=== PATIENT | female | born 1950 | race Caucasian/White ===

== ENCOUNTER 2025-05-15 05:22 | Observation (INO) ==
--- NOTE | 2025-04-29 09:16 | PAT Medication Instructions ---
Medication Instructions Date of Service April 29, 2025 Home Medications amlodipine 2.5 mg tablet 2.5 mg PO QAM atorvastatin 20 mg tablet 20 mg PO QAM baclofen 10 mg tablet 10 mg PO UD PRN losartan 50 mg tablet 50 mg PO BID acetaminophen 650 mg tablet,extended release 650 mg PO Q12 PRN albuterol sulfate 90 mcg/actuation aerosol inhaler 2 puff inhalation QID PRN aspirin 325 mg tablet 325 mg PO DAILY PRN diclofenac sodium 1 % topical gel 2 g topical QID PRN furosemide 20 mg tablet 20 mg PO QAM glucosamine-chondroitin 250 mg-200 mg tablet 1 tab PO QAM [id number]-lgh-WI 200 mcg-vit K 15 mcg-lycope 150 ejj-cvuewp-tktm tablet (Ocuvite Eye Plus Multi) 1 tab PO QAM omega-3 fatty acids 1,000 mg PO QAM spironolactone 25 mg tablet 12.5 mg PO 3XWK turmeric 400 mg capsule 400 mg PO QAM Continue as directed baclofen 10 mg tablet 10 mg PO UD PRN(if needed) ASK your prescriber and surgeon aspirin 325 mg tablet 325 mg PO DAILY PRN STOP taking 2 weeks before surgery (or as soon as possible if surgery is within 2 weeks) glucosamine-chondroitin 250 mg-200 mg tablet 1 tab PO QAM [id number]-qjx-LK 200 mcg-vit K 15 mcg-lycope 150 eqh-zrkmov-ucvz tablet (Ocuvite Eye Plus Multi) 1 tab PO QAM omega-3 fatty acids 1,000 mg PO QAM turmeric 400 mg capsule 400 mg PO QAM STOP taking 24 hours before surgery diclofenac sodium 1 % topical gel 2 g topical QID PRN DO NOT take the morning of surgery losartan 50 mg tablet 50 mg PO BID furosemide 20 mg tablet 20 mg PO QAM spironolactone 25 mg tablet 12.5 mg PO 3XWK Take morning of surgery With a small sip of water, OTHERWISE NOTHING TO EAT OR DRINK AFTER MIDNIGHT: amlodipine 2.5 mg tablet 2.5 mg PO QAM atorvastatin 20 mg tablet 20 mg PO QAM acetaminophen 650 mg tablet,extended release 650 mg PO Q12 PRN(if needed) albuterol sulfate 90 mcg/actuation aerosol inhaler 2 puff inhalation QID PRN(use if needed; please bring with you to hospital day of surgery if possible) Take evening before surgery losartan 50 mg tablet 50 mg PO BID acetaminophen 650 mg tablet,extended release 650 mg PO Q12 PRN(if needed) albuterol sulfate 90 mcg/actuation aerosol inhaler 2 puff inhalation QID PRN(if needed) Other Notes If you have any questions please call us at [phone] or [phone] or [phone] or [phone]
--- NOTE | 2025-05-01 11:58 | Anesthesiology Consultation ---
Date of Service May 01, 2025 Assessment & Plan (1) Encounter for pre-operative examination: - Infectious disease screening: Per assessment on 05/01/25- No known recent infectious disease contacts or current infectious disease symptoms. - Outpatient joint assessment: Pt currently scheduled for inpatient pathway. If surgeon requests review for outpatient joint pathway, patient is not recommended candidate for outpatient joint program from anesthesia standpoint based on available information. - Cardiology visit (03/08/25): "Aortic regurgitation. Moderate via January 2025 resting echocardiogram. Nondilated LV. EF 65 to 69%. Continue routine surveillance monitoring via resting echocardiography in January 2026.. Diastolic congestive heart failure secondary to valvular disease and hypertension. Volume status improved following addition of furosemide. Follow-up metabolic panel and magnesium level requested today. Further titration of furosemide versus the addition of spironolactone discussed. Coronary artery and thoracic aortic atherosclerosis via prior lung cancer screening chest CT. Nonischemic Lexiscan nuclear stress testing on February 06, 2025.. Chronically abnormal EKG; LVH with st rain. Enlarged proximal ascending thoracic aorta.. Hypertension. Improved.. Preoperative cardiology consultation. Blood pressure and volume overload have improved. Resting echocardiography stable, normal Lexiscan nuclear stress testing. At this time there are no overt cardiac contraindications to elective surgery. Consider hospital based surgery over outpatient surgery center.." Chart Review Chart Review: Acceptable Risk for Surgery and Patient seen in Pre Admission Testing Teaching & Discussion Pre-Anesthesia Teaching/Discussion Notes: Instructed NPO after midnight before surgery,except medications with 15 cc of water. Medication instructions provided according to the PAT guidelines. History Surgery Operation Date: 05/15/25 13:05 Proposed Procedures p Left Total Knee Arthroplasty - Jas Castaneda MD Height/Weight Height: 5 ft Weight: 79.6 kg Allergies Allergy/AdvReac Type Severity Reaction Status Date / Time bacitracin Allergy Mild Blister/cely Verified 04/26/25 14:17 [From Neosporin h ([id number])] neomycin Allergy Mild Blister/cely Verified 04/26/25 14:17 [From Neosporin h ([id number])] polymyxin B Allergy Mild Blister/cely Verified 04/26/25 14:17 [From Neosporin h ([id number])] Medications Home Medications Medication Instructions Recorded Confirmed Last Taken amlodipine 2.5 mg tablet 2.5 mg PO QAM 02/18/20 04/26/25 02/28/20 17:00 atorvastatin 20 mg tablet 20 mg PO QAM 02/18/20 04/26/25 02/28/20 08:00 baclofen 10 mg tablet 10 mg PO UD PRN Muscle Spasm 02/18/20 04/26/25 Unknown losartan 50 mg tablet 50 mg PO BID 02/18/20 04/26/25 02/28/20 22:30 acetaminophen 650 mg 650 mg PO Q12 PRN Pain 04/26/25 04/26/25 Unknown tablet,extended release albuterol sulfate 90 mcg/actuation 2 puff inhalation QID PRN 04/26/25 04/26/25 Unknown aerosol inhaler Shortness Of Breath aspirin 325 mg tablet 325 mg PO DAILY PRN Pain 04/26/25 04/26/25 Unknown diclofenac sodium 1 % topical gel 2 g topical QID PRN joint pain 04/26/25 04/26/25 Unknown furosemide 20 mg tablet 20 mg PO QAM 04/26/25 04/26/25 Unknown glucosamine-chondroitin 250 mg-200 1 tab PO QAM 04/26/25 04/26/25 Unknown mg tablet yiaeazau-kba-JO 200 mcg-vit K 15 1 tab PO QAM 04/26/25 04/26/25 Unknown mcg-lycope 150 brd-yvjqfw-zpoc tablet (Ocuvite Eye Plus Multi) omega-3 fatty acids 1,000 mg PO QAM 04/26/25 04/26/25 Unknown spironolactone 25 mg tablet 12.5 mg PO 3XWK 04/26/25 04/26/25 Unknown turmeric 400 mg capsule 400 mg PO QAM 04/26/25 04/26/25 Unknown Past Medical History Medical History Aortic regurgitation Echo 01/2025: Moderate AR No significant change compared to 07/21/2023 study per report. Follows with [facility] Ascending aorta dilation CT Thorax 04/22/25: Mild aneurysmal dilatation of ascending thoracic aorta measuring up to 4.3cm, "grossly unchanged" per report Degenerative disc disease History of bronchitis Reason for inhaler per patient, only uses once or twice a year Hyperlipidemia Hypertension Osteoarthritis Exercise / Class Metabolic Activity III < 4 Walking/Shop/Light housework Past Family History Family History Other No family history of adverse response to anesthesia Past Surgical History Surgical History History of carpal tunnel release of both wrists History of cataract surgery History of foot surgery (02/2020) Left History of wisdom tooth extraction Past Anesthesia History No Hx of Anesthesia Complications and No Family Hx of Anesthesia Complications History of PONV No Hx of PONV and No Hx of Motion Sickness Social History Smoking Status: Former smoker tobacco type: cigarettes Do You Dip or Chew Tobacco: No Smoking End Date: 2021 Hx Alcohol Use: No Hx Substance Use: No substance use type: does not use Review of Systems Patient denies chest pain, shortness of breath, fever, chills, cough, wheezing, palpitations. Physical Exam Vital Signs Vitals BP 126/71 P 88 TEMP 97.8 SP02 93%RA RESP 16 Physical Full cervical extension range of motion. Full TMJ range of motion. TMD 3 finger breaths Mallampati Score III Dentition: partial upper Lungs: clear throughout to auscultation Cardiac: regular rate and rhythm, II/ systolic murmur Spine: normal Carotid arteries: negative bruit Extremities: no LE edema Lab Results Anesthesia Preop Results Results Anesthesia Widget: WBC 8.02 K/ul (4.8-10.8) 05/01/25 Hgb 12.0 g/dl (12.0-16.0) 05/01/25 Hct 36.2 % (37.0-47.0) L 05/01/25 Plt 407 K/uL (130-400) H 05/01/25 Na 136 mmol/L (136-145) 05/01/25 K 4.2 mmol/L (3.5-5.1) 05/01/25 Cl 104 mmol/L (98-107) 05/01/25 CO2 25 mmol/L (21-32) 05/01/25 BUN 23 mg/dl (6-23) 05/01/25 Creat 0.80 mg/dl (0.6-1.2) 05/01/25 Glucose Level 86 mg/dl (70-99(Fasting)) 05/01/25 PT 11.2 Seconds (9.0-12.0) 05/01/25 PTT 27 Seconds (21-31) 05/01/25 INR 1.0 (0.9-1.1) 05/01/25 Urine Color Yellow 05/01/25 Urine Appearance Clear (Clear) 05/01/25 Urine pH 5.0 (4.5-7.5) 05/01/25 Urine Specific Sullivan 1.007 (1.000-1.030) 05/01/25 Urine Protein Negative (Negative) 05/01/25 Urine Glucose (UA) Negative (Negative) 05/01/25 Urine Ketones Negative (Negative) 05/01/25 Urine Blood Negative (Negative) 05/01/25 Urine Nitrite Negative (Negative) 05/01/25 Urine Bilirubin Negative (Negative) 05/01/25 Urine Urobilinogen Negative (Negative) 05/01/25 Urine Leukocyte Esterase 2+ (Negative) H 05/01/25 Urine WBC (Auto) 0-5 /hpf (0-5) 05/01/25 Urine RBC (Auto) 0-2 /hpf (0-2) 05/01/25 Urine Hyaline Casts (Auto) 0-2 /lpf (0-2) 05/01/25 Urine Epithelial Cells (Auto) 0-2 /hpf (0-2) 05/01/25 Urine Bacteria (Auto) None Seen (None Seen) 05/01/25 Blood Type A Positive 05/01/25 Antibody Screen NEGATIVE 05/01/25 Testing Laboratory Results 03/21/25 SODIUM 138 POTASSIUM 4.8 CHLORIDE 100 CO2 25 BUN 19 CREATININE 0.8 GLUCOSE 104 Electrocardiogram Date: 02/05/25 Sinus rhythm with PACs at 82 bpm. LVH with secondary repolarization abnormality. T wave inversion in inferior and anterior leads. Subsequent nuclear stress echo/echo. Chest X-Ray Date: 05/01/25 FINDINGS: Heart size and pulmonary vasculature are normal. Lungs are hyperexpanded. No consolidation or pleural effusion. IMPRESSION: No acute findings. Echocardiogram Date: 02/06/25 LVEF 65 to 69%. Mildly increased concentric LV wall thickness. Mild LAD. Grade 1 diastolic dysfunction. Moderate AR. Mild MR/TR. No evidence of pulmonary hypertension. LV wall motion is normal. Stress Test Date: 02/06/25 Normal Lexiscan myocardial nuclear perfusion imaging study without evidence of inducible ischemia or myocardial scar. Gated SPECT images reveal normal myocardial thickening and wall motion. LVEF calculated greater than 70%.
--- NOTE | 2025-05-14 17:40 | History & Physical Report ---
Date of Service May 14, 2025 Assessment & Plan (1) Osteoarthritis of left knee: Plan: Left greater than right bilateral knee osteoarthritis with tricompartmental osteoarthritis left knee with synovitis and failure of left knee to respond to injections at this time. Proceed with left total knee arthroplasty. Osteoarthritis type: primary Qualified Code(s): M17.12 - Unilateral primary osteoarthritis, left knee History of Present Illness Chief Complaint: Chronic left knee pain Primary Care Provider: Blake Peters MD 74-year-old female with chronic left knee pain due to osteoarthritis. Condition no longer responding to injections. Patient denies headaches, sweats, fevers, chills, double vision, blurred vision, cough, sore throat, dysphagia, chest pain, sob at rest, wheezing, n/v/d/c, numbness, tingling, fatigue, urinary symptoms, mood disorders. ROS positive for shortness of breath walking up a hill, arthritis of the spine and TMJ. Allergies Allergy/AdvReac Type Severity Reaction Status Date / Time bacitracin Allergy Mild Blister/cely Verified 04/26/25 14:17 [From Neosporin h ([id number])] neomycin Allergy Mild Blister/cely Verified 04/26/25 14:17 [From Neosporin h ([id number])] polymyxin B Allergy Mild Blister/cely Verified 04/26/25 14:17 [From Neosporin h ([id number])] Home Medications Medication Instructions Recorded Confirmed Type amlodipine 2.5 mg tablet 2.5 mg PO QAM 02/18/20 04/26/25 History atorvastatin 20 mg tablet 20 mg PO QAM 02/18/20 04/26/25 History baclofen 10 mg tablet 10 mg PO UD PRN Muscle Spasm 02/18/20 04/26/25 History losartan 50 mg tablet 50 mg PO BID 02/18/20 04/26/25 History acetaminophen 650 mg 650 mg PO Q12 PRN Pain 04/26/25 04/26/25 History tablet,extended release albuterol sulfate 90 mcg/actuation 2 puff inhalation QID PRN 04/26/25 04/26/25 History aerosol inhaler Shortness Of Breath aspirin 325 mg tablet 325 mg PO DAILY PRN Pain 04/26/25 04/26/25 History diclofenac sodium 1 % topical gel 2 g topical QID PRN joint pain 04/26/25 04/26/25 History furosemide 20 mg tablet 20 mg PO QAM 04/26/25 04/26/25 History glucosamine-chondroitin 250 mg-200 1 tab PO QAM 04/26/25 04/26/25 History mg tablet phkziptw-obo-OC 200 mcg-vit K 15 1 tab PO QAM 04/26/25 04/26/25 History mcg-lycope 150 zfb-axfcqs-aqxd tablet (Ocuvite Eye Plus Multi) omega-3 fatty acids 1,000 mg PO QAM 04/26/25 04/26/25 History spironolactone 25 mg tablet 12.5 mg PO 3XWK 04/26/25 04/26/25 History turmeric 400 mg capsule 400 mg PO QAM 04/26/25 04/26/25 History Past Med/Surg History Problem List (Updated 05/14/25 @ 17:38 by Jas Castaneda MD) Osteoarthritis of left knee Osteoarthritis of left foot Metatarsalgia, left foot 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 Follows with [facility] Degenerative disc disease Osteoarthritis Hyperlipidemia Hypertension Surgical History History of foot surgery (02/2020) Left History of wisdom tooth extraction History of carpal tunnel release of both wrists History of cataract surgery Family History Other No family history of adverse response to anesthesia Social History Smoking Status: Former smoker Tobacco Type: Cigarettes Smoking End Date: 2021; Second Hand Exposure: Yes (as a child); Do You Dip or Chew Tobacco: No; Tobacco Cessation Education Requested by Patient: No Hx Alcohol Use: No Hx Substance Use: No Preferred Language: Khmer Communication Ability: Effective Electron Beam Welder Required: No Beliefs That Will Affect Care: None Current Living Situation: Spouse Other Information That Helps Us Care for You: No Feels Safe at Home: Yes Safety Concerns: Feels Safe At This Time Assistive Devices: Denture - Upper, Glasses and Walker Assistive Devices Comment: reading glasses; partial upper Review of Systems All systems reviewed & are unremarkable except as noted in HPI & below Physical Exam Constitutional: WD/WN, vitals as above Respiratory: normal respiratory effort; no respiratory distress Cardiovascular: Rate/Rhythm: regular rate and regular rhythm Musculoskeletal: Left knee with moderate swelling neutral alignment medial joint line tenderness painful Cyndie directed to medial and lateral side painful range of motion 5 through 100 degrees of active motion with 0 to 125 degrees passive motion. Knee effusion on the left, not on the right knee. Some patellofemoral crepitation on the right knee as well as left. Distal circulation sensorimotor exam intact. Skin: no rashes, warm and dry Neurologic: normal touch/pain/proprioception Psychiatric: A+Ox3, euthymic affect Results & Data Diagnostic Findings Advanced osteoarthritis bilateral knees with left knee having tricompartmental osteoarthritis and areas of grade 3 and likely grade 4 osteoarthritis.
[2025-05-15] MEDS: LR 500ML BOLUS, THEN 15ML/HR IV SCH (06:06)
[2025-05-15] MEDS: LR 60ML/HR IV SCH (06:06)
[2025-05-15] MEDS: LR 15ML/HR IV SCH (06:06)
[2025-05-15] MEDS: dexAMETHasone**PF** 10 MG/ML VIAL IV SCH (06:06)
[2025-05-15] MEDS: GABAPENTIN 300 MG CAP PO SCH (06:07)
[2025-05-15] MEDS: ACETAMINOPHEN 500 MG TAB PO SCH ×2 (06:07→14:20)
[2025-05-15] MEDS: METOCLOPRAMIDE HCL 10 MG TABLET PO SCH (06:07)
[2025-05-15] MEDS: FAMOTIDINE 20 MG TAB PO SCH (06:07)
[2025-05-15] MEDS: CeleBREX 200 MG CAP PO SCH (06:07)
[2025-05-15] MEDS ORDERED: BUPIVACAINE 0.5 % 5 MG/1 ML PF 10ML VIAL ONE (06:31)
[2025-05-15] MEDS ORDERED: DEXAMETHASONE SOD INJ 4 MG/ML VIAL ONE (06:31)
[2025-05-15] MEDS ORDERED: BUPIVACAINE 0.25% PF 30 ML VIAL ONE (06:31)
[2025-05-15] MEDS ORDERED: EPINEPHrine INJ 1 MG/ML AMP ONE (06:31)
[2025-05-15] MEDS ORDERED: MIDAZOLAM HCL 1 MG/ML 2ML VIAL ONE ×2 (06:33→07:25)
[2025-05-15] MEDS ORDERED: PROPOFOL IV EMULSION 10 MG/ML 20 ML VIAL IV ONE ×6 (06:33→08:50)
[2025-05-15] MEDS ORDERED: PHENYLEPHRINE HCL 10 MG/ML VIAL ONE (06:34)
[2025-05-15] MEDS ORDERED: ONDANSETRON INJ 2 MG/ML 2 ML VIAL ONE (06:34)
[2025-05-15] MEDS ORDERED: ATROPINE SULFATE 0.1 MG/ML 10ML SYR IV PRN (06:59)
[2025-05-15] MEDS ORDERED: ONDANSETRON INJ 2 MG/ML 2 ML VIAL IV PRN ×2 (06:59→12:04)
[2025-05-15] MEDS: TRANEXAMIC ACID 1,000 MG **IV Pre-op IV SCH (07:04)
--- NOTE | 2025-05-15 07:04 | History & Physical Bridge Note ---
Date of Service May 15, 2025 History & Physical Bridge Note I have examined the patient, reviewed the History & Physical and in the interval since the performance of the History & Physical I have noted the following changes of clinical significance: no changes noted
[2025-05-15] MEDS ORDERED: GLYCOPYRROLATE 0.2 MG/ML VIAL ONE (07:41)
[2025-05-15] MEDS ORDERED: ePHEDrine sulfate 50 MG/5 ML SYR ONE (07:48)
[2025-05-15] MEDS: ROPIVACAINE 0.5% HCL/PF 246 MG, Ketorolac (*for OR use only*) 30 MG in SODIUM CHLORIDE ... INFIL SCH (07:56)
[2025-05-15] MEDS: ORTHO JOINT ANESTHETIC ONE (07:57)
--- NOTE | 2025-05-15 10:07 | Operative Report ---
Post Operative Report Pre & Post Diagnosis Operation Date: 05/15/25 07:00 Pre-Op Diagnosis: Left Knee Degenerative Joint Disease osteoarthritis end-stage Post-Op Diagnosis: Left Knee Degenerative Joint Disease osteoarthritis and probable rheumatoid arthritis end-stage I identified the patient and participated in the time-out.: Yes Procedure Operation Date: 05/15/25 07:00 Actual Procedures p Left Total Knee Arthroplasty(Left), lateral release, application keily and Acticoat superficial wound VAC- Jas Castaneda MD Surgeon Jas Castaneda MD Washing Machine Operator Brandon RANDHAWA Estimated Blood Loss 5 Findings Consistent with Post-Op Diagnosis Specimens Bone cuts Drains 2 Hemovac Anesthesia Type MAC Spinal Regional Complications none Disposition Disposition: Recovery Room Indications 74-year-old female with chronic bilateral knee pain left greater than right. She has been managed with injections but recently injections did not work on her left knee which has chronic swelling and pain and radiographically grade 4 arthritic changes now. Description of Procedure The patient was taken to the operating room and anesthetized under spinal MAC regional block. Patient was placed supine on the the operating table. A pneumatic tourniquet was placed about the left moderately obese upper thigh. The knee exam demonstrated neutral alignment with 0 to 130 degrees range of motion and no gross instability with a moderately large chronic effusion. The involved leg was elevated exsanguinated with Esmarch bandage and the pneumatic tourniquet was raised to 325 millimeters mercury. A longitudinal incision was made across the anterior knee. Skin flaps were elevated. An incision was made into the medial retinaculum and extended up into the mid third of the quadriceps tendon and extended down to the tibial tubercle. Intra-articular findings demonstrated chronically scarred thickened synovial tissue consistent with chronic synovitis. The synovium was growing up onto the articular surface on the patella and 50% of patella was covered with synovial tissue which would be a sign of rheumatoid arthritis. The ACL was partially torn and the PCL was intact and the medial meniscus had a chronic tear with minimal medial meniscus remaining. The knee was exposed by excising cruciate ligaments and menisci. The infrapatellar fat pad was resected. The fat pad over the anterior femur at the upper aspect of the articular surface was resected for placement of the component in that area. A subperiosteal peel lateral release was performed around the patella. The [employer] Nephew SYSTRANney 2.0 total knee arthroplasty system was utilized for the procedure. The custom femoral cutting guide was pinned in position. The distal femoral cut was made. The size 3, 5 in 1 cutting block was placed. This was adjusted anteriorly in order not to notch the femoral cortex and pinned in position. The anterior posterior and chamfer cuts were made. The knee was extended and a free hand cut technique was performed to the patella. The patella width was measured which was only 19 mm thick and the width was reproduced using a 35 mm symmetrical patella component. The excess lateral facet was beveled off to prevent any impingement. 3 drill holes are made for the patella component pegs. The tibia was then subluxed. The custom tibial cutting block was pinned in position and the proximal tibial cut was made with the oscillating saw. Flexion and extension gaps were balanced. Medial and posterior medial and pie crusting of and thick tense band of the MCL anteriorly releases were required. The size 2 tibial trial was maximally externally rotated in line with the tibial tubercle and pinned in position. The punch for the stem was used. The femoral trial was inserted and centered and the notch cutting devices were used and the collet was placed. Tibial trials were used for the insert. The size 13 trial gave balanced ligaments through full range of motion. Patella tracking was assessed with range of motion. The patella tracked with some lateral tilt still so I felt it required a lateral release which was performed preserving the synovium and then the patella tracked centrally afterward. The trials were removed. The Orthomix anesthetic cocktail was injected per protocol. The cut bone surfaces and soft tissue were copiously irrigated with pulsatile lavage saline solution. The final components were cemented with Refobacin cement. The final components were Torres [employer] Nephew journey 2.0 size 3 left femoral component with size 2 left tibial component with 13 left posterior stabilized tibial polyethylene and a 35 mm symmetrical polyethylene patella. Xperience irrigation was placed over metal tray prior to polyethyle insertion. After the cement cured, the knee was then copiously irrigated with pulsatile lavage Xperience solution. 2 drains were brought out laterally connected to Hemovac. The quadriceps tendon and medial retinaculum were closed with interrupted [id number] # 2 FiberWire sutures around the medial retinaculum distal quad tendon and the apex of the quad split proximally and at the level of the tibial polyethylene medially in the retinaculum. An additional 0 running locking STRATAFIX suture was utilized from the superior split down to the inferior pole of the patella level followed by interrupted figure eight #1 Vicryl sutures below that level. Complete repair was achieved and was stable through full range of motion. The patella tracked centrally. Knee range of motion was 0 through 130 degrees. the subcutaneous tissues were closed with 2-0 Vicryl sutures. The skin was closed with surgical leon. A keily and Acticoat superficial wound VAC was applied. The tourniquet was let down and the patient had good capillary refill to the extremity. The patient tolerated the procedure well. My physician assistant branch operations manager Brandon RANDHAWA participated as dietetic assistant and was integral part in all aspects of the procedure including prepping, draping, leg positioning, soft tissue retraction, instrument management and assisted in the closure , wound VAC application and will participate in postoperative care the patient. I attest to the content of the Intraoperative Record and any orders documented therein. Any exceptions are noted below.
--- NOTE | 2025-05-15 11:17 | XRay Report ---
TWO VIEWS LEFT KNEE CLINICAL HISTORY: Postoperative examination. FINDINGS: AP and crosstable lateral portable views of the left knee are obtained. A left knee arthrop lasty is in near anatomic alignment. There has been undersurface remodeling of the patella. No acute fracture is seen. There are expected postoperative changes around the knee including skin clips, a hernandez rgical drain, soft tissue edema, and subcutaneous gas. IMPRESSION: Expected postoperative changes status post left knee arthroplasty. No acute fracture is s een. ACT 112: Negative or not required by law. Electronically signed by: Yaya Henriquez M.D. 05/15/2025 11:15 AM
[2025-05-15] MEDS ORDERED: ALBUTEROL HFA 8 GM INHALER INH PRN (12:04)
[2025-05-15] MEDS ORDERED: diphenhydrAMINE Capsule 25 MG CAP PO PRN (12:04)
[2025-05-15] MEDS ORDERED: KETOROLAC TROMETHAMINE 15 MG/ML VIAL IV PRN (12:04)
[2025-05-15] MEDS ORDERED: DICLOFENAC SOD 1% GEL 100 GM TUBE EXT PRN (12:04)
[2025-05-15] MEDS ORDERED: HYDROmorphone INJ 0.5 MG/0.5 ML SYR IV PRN (12:04)
[2025-05-15] MEDS ORDERED: NALOXONE HCL 0.4 MG/1 ML VIAL/CARP IV PRN (12:04)
[2025-05-15] MEDS ORDERED: ALUMINUM/MAGNESIUM SUSP 30 ML UDC PO PRN (12:04)
[2025-05-15] MEDS ORDERED: MAGNESIUM HYDROXIDE SUSP 30 ML UDC PO PRN (12:04)
[2025-05-15] MEDS ORDERED: METOCLOPRAMIDE HCL INJ 5 MG/ML 2 ML VIAL IV PRN (12:04)
[2025-05-15] MEDS: SODIUM CHLORIDE 0.9% 1,000 ML IV SCH (12:27)
[2025-05-15 13:28] VITALS: RESP 18
[2025-05-15] MEDS: SPIRONOLACTONE 12.5 MG TAB PO SCH (14:20)
--- NOTE | 2025-05-15 14:33 | Anesthesiology Progress Note ---
Date of Service May 15, 2025 Anesthesia Post Procedure Vital Signs Vital Signs: Temp Pulse Pulse Resp BP Pulse Ox O2 Del Method 05/15/25 14:28 37.1 C 68 18 133/79 94 Room Air 05/15/25 14:00 36.4 C L 69 18 155/69 H 93 Room Air 05/15/25 13:00 36.4 C L 70 18 137/62 94 Room Air 05/15/25 12:28 74 16 136/72 95 Nasal Cannula 05/15/25 12:00 36.7 C 63 18 141/68 H 98 Room Air 05/15/25 11:30 68 18 150/69 H 95 Nasal Cannula 05/15/25 11:15 63 15 137/60 91 Nasal Cannula 05/15/25 11:00 65 17 132/62 91 Nasal Cannula 05/15/25 10:45 65 21 137/60 91 Nasal Cannula 05/15/25 10:30 66 18 152/60 H 92 Nasal Cannula 05/15/25 10:25 36.4 C L 68 15 143/61 H 91 Oxymask 05/15/25 10:15 72 15 127/58 L 93 Oxymask 05/15/25 10:05 73 18 130/87 95 Oxymask 05/15/25 09:56 36.5 C 79 16 151/57 H 92 Oxymask 05/15/25 05:46 36.4 C L 89 18 122/67 90 Room Air O2 Flow Rate 05/15/25 14:28 05/15/25 14:00 05/15/25 13:00 05/15/25 12:28 2 05/15/25 12:00 05/15/25 11:30 2 05/15/25 11:15 2 05/15/25 11:00 2 05/15/25 10:45 2 05/15/25 10:30 2 05/15/25 10:25 3 05/15/25 10:15 7 05/15/25 10:05 10 05/15/25 09:56 10 05/15/25 05:46 Pain Intensity Left Knee: Pain Intensity: 2 Transfer of Care Handoff Completed per policy Notes Mental Status: alert / awake / arousable Patient Amnestic to Procedure: Yes Nausea / Vomiting: adequately controlled Pain: adequately controlled Airway Patency, RR, SpO2: stable & adequate BP & HR: stable & adequate Hydration State: stable & adequate Neuraxial Anesthesia: was administered and sensory block is resolving Anesthetic Complications: no major complications apparent and Pt Satisfied with anesthetic care
--- NOTE | 2025-05-15 15:07 | Consultation ---
Date of Consultation May 15, 2025 Assessment & Plan (1) S/P total knee arthroplasty: Post op day# 0 S/P Left TKA by Dr Castaneda EBL #5ml Pain management per ortho Wound management per ortho PT/OT as appropriate DVT prophylaxis per ortho Incentive spirometry Monitor H&H for acute blood loss anemia; Pre-op Hgb: 12 (2) Hypertension: Continue amlodipine, losartan (3) Hyperlipidemia: Continue atorvastatin (4) Aortic regurgitation: (5) Chronic heart failure with preserved ejection fraction (HFpEF): Coronary atherosclerosis 01/2025 echo EF: 65-69% 02/06/25 Lexiscan without inducible ischemia Continue furosemide, spironolactone, statin DVT Prophylaxis SCDs per ortho Disposition per primary service Follows with Dr Peters for routine care Pt was seen and care coordinated with Dr Davis. See addendum Thank you for this consultation. We will follow the patient with you during their hospital stay. You can reach a [facility] via [employer] Supervising Physician Co-Signing Physician Notes 74-year-old lady with PMH of SLE, HTN, emphysema was seen and examined at bedside as a medical consultation status post left TKA. Patient hemodynamically stable and doing well at bedside exam. Monitor H&H. Patient denies any other review of symptoms, reports operative site pain fairly under control, reports h er sensation distal to the operative site is yet to come back fully. On exam: Patient sitting up in chair, on room air, distal neurovascular status WNL. Rest of the examination as above. I have seen and examined the patient and have discussed the case with the provider above. I agree with the assessment and plan as stated. Total time spent independently: 17 minutes. History of Present Illness Requesting Physician: Dr Castaneda Reason for Consultation: Post op medical management Attending Physician: Jas Castaneda MD History of Present Illness Patient is 74 year old female with PMH HTN, dyslipidemia, chronic HFpEF, aortic regurgitation, coronary atherosclerosis, chronic abnormal EKG, LVH, emphysema, prior tobacco use and others listed below seen in medical consultation s/p left TKA today by Dr. Castaneda. Postop patient reports is doing well. She reports pain is controlled. Still with some numbness/heaviness sensation LLE. Has been up and ambulated to bathroom. Reports urinating without difficulty. Reports last BM yesterday. Tolerating diet. Denies fever/chills, diaphoresis, N/V/D/C, CALDERA, dizziness, CP, SOB, cough, abdominal pain, extremity edema, rashes, urinary symptoms. Allergies Allergy/AdvReac Type Severity Reaction Status Date / Time bacitracin Allergy Mild Blister/cely Verified 05/15/25 05:51 [From Neosporin h ([id number])] neomycin Allergy Mild Blister/cely Verified 05/15/25 05:51 [From Neosporin h ([id number])] polymyxin B Allergy Mild Blister/cely Verified 05/15/25 05:51 [From Neosporin h ([id number])] Home Medications Medication Instructions Recorded Confirmed Type amlodipine 2.5 mg tablet 2.5 mg PO QAM 02/18/20 05/15/25 History atorvastatin 20 mg tablet 20 mg PO QAM 02/18/20 05/15/25 History baclofen 10 mg tablet 10 mg PO UD PRN Muscle Spasm 02/18/20 05/15/25 History losartan 50 mg tablet 50 mg PO BID 02/18/20 05/15/25 History acetaminophen 650 mg 650 mg PO Q12 PRN Pain 04/26/25 05/15/25 History tablet,extended release albuterol sulfate 90 mcg/actuation 2 puff inhalation QID PRN 04/26/25 05/15/25 History aerosol inhaler Shortness Of Breath diclofenac sodium 1 % topical gel 2 g topical QID PRN joint pain 04/26/25 05/15/25 History furosemide 20 mg tablet (Lasix) 20 mg PO QAM 04/26/25 05/15/25 History glucosamine-chondroitin 250 mg-200 1 tab PO QAM 04/26/25 05/15/25 History mg tablet [id number] 200 mcg-vit K 15 1 tab PO QAM 04/26/25 05/15/25 History mcg-lycope 150 cje-pcztio-jaom tablet (Ocuvite Eye Plus Multi) omega-3 fatty acids 1,000 mg PO QAM 04/26/25 05/15/25 History spironolactone 25 mg tablet 12.5 mg PO 3XWK 04/26/25 05/15/25 History turmeric 400 mg capsule 400 mg PO QAM 04/26/25 05/15/25 History acetaminophen 500 mg tablet 1,000 mg (2 x 500 mg) PO Q8H #90 05/15/25 Rx (Tylenol Extra Strength) tabs aspirin 81 mg tablet,delayed 81 mg PO BID #60 tabs 05/15/25 Rx release cefadroxil 500 mg capsule 500 mg PO Q12H #28 caps 05/15/25 Rx celecoxib 200 mg capsule (Celebrex) 200 mg PO Q12H #60 caps 05/15/25 Rx oxycodone 5 mg tablet 5 mg PO Q4H PRN pain #30 tabs 05/15/25 Rx Patient History Medical History Ascending aorta dilation CT Thorax 04/22/25: 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 Follows with [facility] Degenerative disc disease Osteoarthritis Hyperlipidemia Hypertension Surgical History History of foot surgery (02/2020) Left History of wisdom tooth extraction History of carpal tunnel release of both wrists History of cataract surgery Family History Other No family history of adverse response to anesthesia Social History Smoking Status: Former smoker Tobacco Type: Cigarettes Smoking End Date: 2021; Second Hand Exposure: Yes (as a child); Do You Dip or Chew Tobacco: No; Tobacco Cessation Education Requested by Patient: No Hx Alcohol Use: No Hx Substance Use: No Preferred Language: Jordanian Communication Ability: Effective Gear Changer Required: No Beliefs That Will Affect Care: None Current Living Situation: Spouse Other Information That Helps Us Care for You: No Feels Safe at Home: Yes Safety Concerns: Feels Safe At This Time Assistive Devices: Cane and Walker Assistive Devices Comment: reading glasses; partial upper Review of Systems Review of Systems: All systems reviewed & are unremarkable except as noted in HPI & below Physical Exam Physical Exam: General: no distress, WDWN Head: normocephalic, atraumatic Eyes: conjunctiva non-injected, anicteric ENT: normal inspection external ears, nose, mucous membranes moist Neck: supple, trachea midline Lungs: clear, no respiratory distress, no wheezing/rhonchi/rales CV: RRR, no murmur, no pretibial edema Abd: normal BS, soft, non-tender Ext: RLE: no cyanosis, no calf tenderness; LLE: +AGUS wrap and surgical dressing in place, +hemovac drain in place. Active dorsiflexion and plantarflexion of foot, sensation light touch left toes intact Neuro: A&O x 3, no focal deficits noted, normal affect Skin: warm, dry Results & Data Vital Signs (Past 12 Hours) Vital Signs Temp Pulse Pulse Resp BP Pulse Ox O2 Del Method 05/15/25 14:28 37.1 C 68 18 133/79 94 Room Air 05/15/25 14:00 36.4 C L 69 18 155/69 H 93 Room Air 05/15/25 13:00 36.4 C L 70 18 137/62 94 Room Air 05/15/25 12:28 74 16 136/72 95 Nasal Cannula 05/15/25 12:00 36.7 C 63 18 141/68 H 98 Room Air 05/15/25 11:30 68 18 150/69 H 95 Nasal Cannula 05/15/25 11:15 63 15 137/60 91 Nasal Cannula 05/15/25 11:00 65 17 132/62 91 Nasal Cannula 05/15/25 10:45 65 21 137/60 91 Nasal Cannula 05/15/25 10:30 66 18 152/60 H 92 Nasal Cannula 05/15/25 10:25 36.4 C L 68 15 143/61 H 91 Oxymask 05/15/25 10:15 72 15 127/58 L 93 Oxymask 05/15/25 10:05 73 18 130/87 95 Oxymask 05/15/25 09:56 36.5 C 79 16 151/57 H 92 Oxymask 05/15/25 05:46 36.4 C L 89 18 122/67 90 Room Air O2 Flow Rate 05/15/25 14:28 05/15/25 14:00 05/15/25 13:00 05/15/25 12:28 2 05/15/25 12:00 05/15/25 11:30 2 05/15/25 11:15 2 05/15/25 11:00 2 05/15/25 10:45 2 05/15/25 10:30 2 05/15/25 10:25 3 05/15/25 10:15 7 05/15/25 10:05 10 05/15/25 09:56 10 05/15/25 05:46
[2025-05-15] MEDS: TRANEXAMIC ACID / 0.7% NACL 1,000 MG/100 ML BAG IV SCH (16:37)
[2025-05-15] MEDS: DOCUSATE SODIUM 100 MG CAP PO SCH (20:09)
[2025-05-15] MEDS: SENNA 8.6 MG TAB PO SCH (20:09)
[2025-05-15] MEDS: BACLOFEN 10 MG TAB PO PRN (20:09)
[2025-05-15] MEDS: LOSARTAN POTASSIUM 50 MG TAB PO SCH (20:10)
[2025-05-16 07:13] VITALS: BP 138/68; PULSE 61; TEMP 98.1; O2SAT 93
--- NOTE | 2025-05-16 07:53 | Orthopedic Progress Note ---
Date of Service May 16, 2025 Assessment & Plan (1) Osteoarthritis of left knee: Plan: Postop day 1 left total knee replacement. After PT OT patient can be discharged home and will do outpatient physical therapy at [facility]. She will follow-up in 2 weeks for staple removal. She will also arrange follow-up with rheumatology as most likely she has rheumatoid factor positive rheumatoid arthritis based on intraoperative findings. Left greater than right bilateral knee osteoarthritis with tricompartmental osteoarthritis left knee with synovitis and failure of left knee to respond to injections at this time. Proceed with left total knee arthroplasty. Admission and Anticipated Discharge Date Admission Date: May 15, 2025 Subjective Accidentally pulled her drain out and having some drainage from that area. Pain manageable. No shortness of breath or chest pain. Review of Systems Review of Systems: Feels well no chest pain or shortness of breath. Physical Exam Musculoskeletal: Left knee dressing had bloody drainage laterally and below the knee where the drain was pulled out. The dressing was taken down and 1 limb of the Hemovac was pulled out but the other limb was still in place and some of the drains was working out into the bandage from that drain. I removed that placed a new sterile dressing on the new Jacobo wrap on. Distal circulation sensorimotor exam intact. And the keily dressings intact and there is no drainage on that and the seal is working fine. Results & Data Vital Signs (Past 12 Hours) Vital Signs Temp Pulse Pulse Resp BP Pulse Ox O2 Del Method 05/16/25 07:08 36.7 C 61 18 138/68 93 Room Air 05/16/25 04:21 36.8 C 59 L 18 142/73 H 90 Room Air 05/15/25 23:56 36.4 C L 64 18 166/71 H 93 Room Air 05/15/25 20:05 Room Air Diagnostic Findings Well aligned left knee replacement (1) Osteoarthritis of left knee Osteoarthritis type: primary Qualified Code(s): M17.12 - Unilateral primary osteoarthritis, left knee
[2025-05-16 07:55] LABS: Hematocrit (blood only) 30.8 % (37.0-47.0); Hemoglobin 10.2 g/dl (12.0-16.0); Mean Corpuscular Hemoglobin 29.1 pg (25.0-34.0); Mean Corpuscular Volume 87.7 fL (80.0-100.0); Platelet Count 345 K/uL (130-400); RDW Standard Deviation 43.1 fL (36.4-46.3); Red Blood Count 3.51 M/uL (4.20-5.40); White Blood Count 13.34 K/ul (4.8-10.8)
[2025-05-16 08:11] LABS: Anion Gap 6.0 (3-11); Blood Urea Nitrogen 18.0 mg/dl (6-23); Calcium 8.8 mg/dl (8.6-10.3); Carbon Dioxide 26.0 mmol/L (21-32); Chloride 98.0 mmol/L (98-107); Creatinine Clr Calc Pharmacy 52.9 ml/min; Glucose 132.0 mg/dl (70-99(Fasting)); Potassium 4.7 mmol/L (3.5-5.1); Sodium 130.0 mmol/L (136-145)
[2025-05-16] MEDS ORDERED: NON-FORMULARY MEDICATION (Mv-Mn-Fa-Vit K-Lycop-Lute-Zeax [Ocuvite Eye Plus Multi] 200-15-1 PO SCH (09:00)
[2025-05-16] MEDS ORDERED: NON-FORMULARY MEDICATION (Turmeric 400 mg Capsule) PO SCH (09:00)
[2025-05-16] MEDS ORDERED: NON-FORMULARY MEDICATION (Glucosamine-Chondroitin 250-200 mg Tablet) PO SCH (09:00)
[2025-05-16] MEDS: dexAMETHasone 10 MG in SYRINGE 0 ML IV SCH (09:23)
[2025-05-16] MEDS: ASPIRIN 81 MG ECTAB PO SCH (09:23)
[2025-05-16] MEDS: FUROSEMIDE 20 MG TAB PO SCH (09:24)
[2025-05-16] MEDS: ATORVASTATIN 20 MG TAB PO SCH (09:24)
[2025-05-16] MEDS: MULTIVITAMIN TAB PO SCH (09:24)
[2025-05-16] MEDS: OMEGA-3 (PURIFIED FISH OIL) 1 GM CAP PO SCH (09:24)
--- NOTE | 2025-05-16 12:11 | Hospitalist Progress Note ---
Date of Service May 16, 2025 Assessment & Plan (1) S/P total knee arthroplasty: Plan: Post op day# 0 S/P Left TKA by Dr Tonya ASHER #5ml Pain management per ortho Wound management per ortho PT/OT as appropriate DVT prophylaxis per ortho Incentive spirometry Monitor H&H for acute blood loss anemia; Pre-op Hgb: 12 9/4 Stable overall Hemoglobin 10.2 from 12.0 Likely acute blood loss anemia Repeat CBC as an outpatient (2) Hypertension: Plan: Continue amlodipine, losartan (3) Hyperlipidemia: Plan: Continue atorvastatin (4) Aortic regurgitation: (5) Chronic heart failure with preserved ejection fraction (HFpEF): Plan: Coronary atherosclerosis 01/2025 echo EF: 65-69% 02/06/25 Lexiscan without inducible ischemia Continue furosemide, spironolactone, statin DVT Prophylaxis SCDs per ortho Admission and Anticipated Discharge Date Admission Date: May 15, 2025 Subjective seen resting in bedside chair, comfortable In good spirits States left knee pain is well-controlled Able to ambulate in the lobo twice a day with no issues No chest pain, shortness of breath, dizziness, palpitations No other new symptoms States she is ready for discharge today Review of Systems Review of Systems: all noted and negative except for above Physical Exam Physical Exam: General- oriented x 3, not in distress, speaks in sentences with no effort or accessory muscle use Eyes- anicteric Neck- no JVD Lungs- clear breath sounds bilaterally, no rales/wheezes Heart- normal rate, regular rhythm; no murmurs Abdomen- normal bowel sounds, nondistended, soft, nontender Extremities- no pretibial edema, no calf tenderness left knee:-Dressing in place, no bleeding or discharge Neuro- alert, oriented x 3; no gross focal neurologic deficits Skin- warm & dry Results & Data Results & Data Vital Signs (Past 12 Hours) Vital Signs Temp Pulse Pulse Resp BP Pulse Ox O2 Del Method 05/16/25 07:08 36.7 C 61 18 138/68 93 Room Air 05/16/25 04:21 36.8 C 59 L 18 142/73 H 90 Room Air all noted and reviewed including below
== END 2025-05-16 10:47 | disposition home or self-care (01) ==
LOC: ASU 05:22 → 3W 05:22